=== PATIENT | female | born 1970 | race Caucasian/White ===

== ENCOUNTER 2018-07-17 18:19 | Inpatient (IN) | payer OTHER ==
[2018-07-17] MEDS ORDERED: Sodium Chloride 0.9% 1000 ML 1,000 ML IV SCH (19:00)
[2018-07-17] MEDS ORDERED: Catapres 0.1 MG PO ONE (19:01)
[2018-07-17 19:19] LABS: BASOPHIL % 0.3 % (0.0-0.4); Basophil (Absolute #) 0.03 (0-0.4); Eosinophil % 0.7 % (0.00-5.0); Eosinophil (Absolute #) 0.07 (0-0.5); Granulocyte Absolute (ANC) 7.25 (1.4-6.9); Granulocytes % 77.6 % (36.0-66.0); Hematocrit 47.7 % (35-47); Hemoglobin 15.1 gm/dl (12.0-16.0); Lymphocyte (Absolute #) 1.35 (1.0-4.6); Lymphocytes % 14.4 % (24.0-44.0); Mean Cell Volume 94.8 fl (78-100); Mean Corpuscular Hgb Concent. 31.7 g/dl (32-36); Monocyte (Absolute #) 0.65 (0.0-1.3); Platelet Count 365 K/mm3 (150-450); Red Blood Count 5.03 M/mm3 (4.1-5.4); White Blood Count 9.4 K/mm3 (4.0-10.5)
[2018-07-17] MEDS ORDERED: Catapres 0.1 MG ONE (19:22)
[2018-07-17 19:28] LABS: ANION GAP 12.7 MEQ/L (5-15); BLOOD UREA NITROGEN 15 mg/dL (7-17); CHLORIDE 97 mmol/L (98-107); Calcium 9.6 mg/dL (8.4-10.2); Carbon Dioxide 32 mmol/L (22-30); Glucose 215 mg/dL (74-106); Potassium 4.3 mmol/L (3.5-5.1); SODIUM 138 mmol/L (137-145)
[2018-07-17] MEDS ORDERED: TRANDATE 20 MG/5 ML SYRINGE IV ONE ×2 (20:44→20:56)
[2018-07-17 21:46] LABS: A-aADO2 38; ABG HEMOGLOBIN 14.6; ABG POTASSIUM 3.9 (3.5-5.1); ARTERIAL BLD GAS O2 SATURATION 87.3 % (95-100); ARTERIAL BLOOD GAS BASE EXCESS 7.7 (-2.0-2.0); ARTERIAL BLOOD GAS FIO2 21 %; ARTERIAL BLOOD GAS PCO2 49 mmHg (35-45); ARTERIAL BLOOD GAS pH 7.44 (7.35-7.45); CARBOXYHEMOGLOBIN 2.7 % THgb (0.0-6.9); HCO3- 33.3 (22-28); HGB O2 SAT 83.7 g/dF (94-100); Methhemoglobin 1.4 % (1.4-1.5); paO2 pAO1 0.57
[2018-07-17 21:47] LABS: ABG SITE RIGHT BRACHIAL; ALLEN TEST OK? YES; ARTERIAL BLOOD GAS PO2 50 mmHg (75-100)
[2018-07-17] MEDS ORDERED: DUONEB 0.5-3 MG/3 ml Neb IH ONE ×2 (21:52→21:53)
--- NOTE | 2018-07-17 21:57 | XRAY ---
Indication: Headache. High blood pressure. Multiple contiguous axial images obtained through the head without contrast. Comparison: None Normal appearing brain parenchyma, ventricles, and bony calvarium. Visualized paranasal sinuses and mastoid air cells are clear. Impression: Normal CT head without contrast exam. Comment: Preliminary interpretation was made by [facility]. No discrepancy. CTDI 69.25
[2018-07-17 21:59] LABS: INR 1.1 (0.8-3.0)
[2018-07-17 22:17] LABS: NT PRO BNP 759 pg/mL (0-900)
--- NOTE | 2018-07-17 22:24 | ERPHSYRPT ---
- History of Present Illness Time Seen by Provider: 07/17/18 20:10 Source: patient Patient Subjective Stated Complaint: has a sinus headachex 2 days and she is seeing glitter when she watches TV. Concerned that she has high B/P. has not been diagnosed. Triage Nursing Assessment: alert and oriented in no distress. has had a sinus headache x 2 days. states she is seeing glitter when she watches TV. she is concerned her B/P is elevated. has not been diagnosed with it. denies CP or SOB. denies cough Physician History: PATIENT PRESENTS TO EMERGENCY FOR ELEVATED BLOOD PRESSURE, ASSOCIATED WITH SINUS PRESSURE AND FLOATERS IN HER VISION. DENIES SLURRED SPEECH, BLURRED VISION, FOCAL NUMBNESS, TINGLING OR WEAKNESS IN EXTREMITIES. HAS NOT SEEN A PRIMARY CARE PROVIDER IN 30YEARS, EXPOSURE TO 2ND HAND SMOKE FOR 40 YEARS. DENIES CHEST PAIN, EXERTIONAL DYSPNEA, COUGH OR FEVER. Timing/Duration: day(s) Severity: moderate Associated Symptoms: headaches Allergies/Adverse Reactions: ibuprofen [From Motrin] Allergy (Verified 07/17/18 23:21) Swelling filgrastim [From Neupogen] Adverse Reaction (Verified 07/17/18 19:08) Immunizations Up to Date: (unknown) - Review of Systems Constitutional: No Fever, No Chills Eyes: No Symptoms Ears, Nose, & Throat: No Symptoms Respiratory: No Symptoms, No Cough, No Dyspnea Cardiac: No Symptoms, No Chest Pain, No Edema, No Syncope Abdominal/Gastrointestinal: No Abdominal Pain, No Nausea, No Vomiting, No Diarrhea Genitourinary Symptoms: No Symptoms, No Dysuria Musculoskeletal: No Symptoms, No Back Pain, No Neck Pain Skin: No Rash Neurological: Headache, No Dizziness, No Focal Weakness, No Sensory Changes Psychological: No Symptoms Endocrine: No Symptoms All Other Systems: Reviewed and Negative - Past Medical History Pertinent Past Medical History: No - Past Surgical History Past Surgical History: No - Social History Smoking Status: Never smoker Exposure to second hand smoke: No Drug Use: none Patient Lives Alone: No - Nursing Vital Signs Nursing Vital Signs: Initial Vital Signs Temperature 97.8 F 07/17/18 18:49 Pulse Rate 91 H 07/17/18 18:49 Respiratory Rate 18 07/17/18 18:49 Blood Pressure 192/99 07/17/18 18:49 O2 Sat by Pulse Oximetry 92 L 07/17/18 18:49 Pain Scale Pain Intensity 2 - Physical Exam General Appearance: no apparent distress, alert Eye Exam: PERRL/EOMI, eyes nml inspection Ears, Nose, Throat Exam: normal ENT inspection, TMs normal, pharynx normal, moist mucous membranes, other (NO PERCUSSION TENDERNESS OVER SINUSES) Neck Exam: normal inspection, non-tender, supple, full range of motion Respiratory Exam: diminished breath sounds, No respiratory distress Cardiovascular Exam: regular rate/rhythm, normal heart sounds, normal peripheral pulses Gastrointestinal/Abdomen Exam: soft, normal bowel sounds, No tenderness, No mass Back Exam: normal inspection, normal range of motion, No CVA tenderness, No vertebral tenderness Extremity Exam: normal inspection, normal range of motion, pelvis stable, pedal edema (1+ EDEMA) Neurologic Exam: alert, oriented x 3, cooperative, normal mood/affect, nml cerebellar function, nml station & gait, sensation nml, No motor deficits Skin Exam: normal color, warm, dry, No rash Lymphatic Exam: No adenopathy SpO2 Interpretation: normal SpO2: 95 Oxygen Delivery: Nasal Cannula - Course EKG Interpreted by Me: RATE, Sinus Rhythm, Sinus Tach, NORMAL AXIS - CT Exams Head CT Interpretation: Tele-radiologist Report, No/Intracranial Hemorrhag Chest CT Interpretation: Tele-radiologist Report (NO CTA EVIDENCE OF PULMONARY EMBOLISM, HAZY NONSPECIFIC AIRSPACE OPACITIES THROUGHOUT BOTH LUNGS,, UNCLEAR WHETHER THIS REPRESENTS DIFFUSE ATELECTATIC CHANGE VS INFECTIOUS/INFLAMMATORY PROCESS SUCH ATYPICAL PNEUMONIA) Ordered Tests: Active Orders 24 hr Category Date Time Status Up With Assistance ROUTINE Activity 07/18/18 00:48 Ordered Code Status Order ROUTINE Care 07/18/18 00:48 Ordered EKG-ER Only STAT Care 07/17/18 18:59 Active IV Care Q6H Care 07/18/18 00:48 Ordered Intake and Output Q12H Care 07/18/18 00:[address] in Observation ROUTINE Care 07/18/18 00:48 Ordered Elio Hose, Apply ROUTINE Care 07/18/18 00:48 Ordered Vital Signs Q4H Care 07/18/18 00:48 Ordered Weight,Daily 0600 Care 07/18/18 00:48 Ordered Cardiac Diet Diet 07/18/18 Breakfast Ordered CHEST WITH CONTRAST [CT] Stat Exams 07/17/18 21:51 Taken HEAD WITHOUT CONTRAST [CT] Stat Exams 07/17/18 19:01 Completed ARTERIAL BLOOD GASES Stat Lab 07/17/18 21:40 Completed BLOOD CULTURE Stat Lab 07/18/18 00:32 Received BMP Stat Lab 07/17/18 19:15 Completed CBC W DIFF Stat Lab 07/17/18 19:15 Completed NT PRO BNP Routine Lab 07/17/18 19:15 Completed PROTIME WITH INR Stat Lab 07/17/18 19:15 Completed TROPONIN Q3H Lab 07/17/18 19:15 Completed TROPONIN Q3H Lab 07/18/18 00:32 Received TROPONIN Q3H Lab 07/18/18 04:00 Ordered TROPONIN Q3H Lab 07/18/18 07:00 Ordered TROPONIN Q3H Lab 07/18/18 10:00 Ordered Oxygen NASAL CANNULA 2 lpm RT 07/18/18 00:48 Ordered Peak Expiratory Flow Rate ONCE RT 07/17/18 21:59 Active Pulse Oximetry CONTINUOUS RT 07/18/18 00:50 Ordered Respiratory Nebulizer Q4H RT 07/18/18 00:48 Ordered Respiratory Therapy Assessment DAILY RT 07/17/18 21:54 Active Respiratory Therapy Consult ROUTINE RT 07/18/18 00:48 Ordered Transfer Order Routine Transfer 07/18/18 Ordered Medication Summary Generic Name Dose Route Start Last Admin Trade Name Freq PRN Reason Stop Dose Admin Ceftriaxone Sodium mg 07/18/18 00:15 Rocephin 1000 Mg Inj IM 07/18/18 00:16 STAT STA Sodium Chloride 1,000 mls @ 50 mls/hr 07/17/18 19:00 07/17/18 19:34 Sodium Chloride 0.9% 1000 Ml IV 08/16/18 18:59 50 mls/hr .Q20H KENYETTA Administration Discontinued Medications Generic Name Dose Route Start Last Admin Trade Name Freq PRN Reason Stop Dose Admin Albuterol/Ipratropium 3 ml 07/17/18 21:53 07/17/18 21:54 Duoneb 0.5-3 Mg/3 Ml Neb IH 07/17/18 21:54 3 ml STAT ONE Administration Albuterol/Ipratropium Confirm 07/17/18 21:52 Duoneb 0.5-3 Mg/3 Ml Neb Administered 07/17/18 21:53 Dose 3 ml IH .STK-MED ONE Clonidine 0.2 mg 07/17/18 19:01 07/17/18 19:34 Catapres 0.1 Mg PO 07/17/18 19:02 0.2 mg STAT ONE Administration Clonidine Confirm 07/17/18 19:22 Catapres 0.1 Mg Administered 07/17/18 19:23 Dose 0.2 mg .ROUTE .STK-MED ONE Lisinopril 20 mg/ 0 mg 07/18/18 10:00 Hydrochlorothiazide 25 mg PO 08/17/18 09:59 DAILY KENYETTA Lisinopril 20 mg/ 0 mg 07/18/18 00:47 Hydrochlorothiazide 25 mg PO 07/18/18 00:48 STAT ONE Labetalol HCl 20 mg 07/17/18 20:44 07/17/18 20:59 Trandate 20 Mg/5 Ml Syringe IV 07/17/18 20:45 20 mg STAT ONE Administration Labetalol HCl Confirm 07/17/18 20:56 Trandate 20 Mg/5 Ml Syringe Administered 07/17/18 20:57 Dose 20 mg IV .STK-MED ONE Lab/Rad Data: Laboratory Result Diagrams 07/17/18 19:15 07/17/18 19:15 Laboratory Results 07/17/18 07/17/18 07/17/18 Range/Units 21:40 19:15 19:15 WBC (4.0-10.5) K/mm3 RBC (4.1-5.4) M/mm3 Hgb (12.0-16.0) gm/dl Hct (35-47) % MCV (78-100) fl MCH (26-32) pg MCHC (32-36) g/dl RDW (11.5-14.0) % Plt Count (150-450) K/mm3 MPV (6-9.5) fl Gran % (36.0-66.0) % Eos # (Auto) (0-0.5) Absolute Lymphs (auto) (1.0-4.6) Absolute Monos (auto) (0.0-1.3) Lymphocytes % (24.0-44.0) % Monocytes % (0.0-12.0) % Eosinophils % (0.00-5.0) % Basophils % (0.0-0.4) % Absolute Granulocytes (1.4-6.9) Basophils # (0-0.4) PT 12.8 H (9.95-12.35) SECONDS INR 1.10 (0.8-3.0) Puncture Site RIGHT BRACHIAL pCO2 49 H (35-45) mmHg pO2 50 L* (75-100) mmHg Base Excess 7.7 H (-2.0-2.0) O2 Saturation 83.7 L (94-100) g/dF ABG pH 7.44 (7.35-7.45) ABG HCO3 33.3 H* (22-28) ABG O2 Sat (Measured) 87.3 L (95-100) % Mickey Test YES A-a Gradient 38 a/A Ratio 0.57 Hemoglobin 14.6 Carboxyhemoglobin 2.7 (0.0-6.9) % THgb Methemoglobin 1.4 (1.4-1.5) % Temperature 37.0 C POC O2 Flow Rate 21 % Sodium (137-145) mmol/L Potassium 3.9 (3.5-5.1) mmol/L Chloride (98-107) mmol/L Carbon Dioxide (22-30) mmol/L Anion Gap (5-15) MEQ/L BUN (7-17) mg/dL Creatinine (0.52-1.04) mg/dL Estimated GFR ML/MIN Glucose (74-106) mg/dL Calcium (8.4-10.2) mg/dL Troponin I < 0.012 (0.000-0.034) ng/mL NT-Pro-B Natriuret Pep 759 (0-900) pg/mL 07/17/18 07/17/18 Range/Units 19:15 19:15 WBC 9.4 (4.0-10.5) K/mm3 RBC 5.03 (4.1-5.4) M/mm3 Hgb 15.1 (12.0-16.0) gm/dl Hct 47.7 H (35-47) % MCV 94.8 (78-100) fl MCH 30.0 (26-32) pg MCHC 31.7 L (32-36) g/dl RDW 13.0 (11.5-14.0) % Plt Count 365 (150-450) K/mm3 MPV 9.0 (6-9.5) fl Gran % 77.6 H (36.0-66.0) % Eos # (Auto) 0.07 (0-0.5) Absolute Lymphs (auto) 1.35 (1.0-4.6) Absolute Monos (auto) 0.65 (0.0-1.3) Lymphocytes % 14.4 L (24.0-44.0) % Monocytes % 7.0 (0.0-12.0) % Eosinophils % 0.7 (0.00-5.0) % Basophils % 0.3 (0.0-0.4) % Absolute Granulocytes 7.25 H (1.4-6.9) Basophils # 0.03 (0-0.4) PT (9.95-12.35) SECONDS INR (0.8-3.0) Puncture Site pCO2 (35-45) mmHg pO2 (75-100) mmHg Base Excess (-2.0-2.0) O2 Saturation (94-100) g/dF ABG pH (7.35-7.45) ABG HCO3 (22-28) ABG O2 Sat (Measured) (95-100) % Mickey Test A-a Gradient a/A Ratio Hemoglobin Carboxyhemoglobin (0.0-6.9) % THgb Methemoglobin (1.4-1.5) % Temperature C POC O2 Flow Rate % Sodium 138 (137-145) mmol/L Potassium 4.3 (3.5-5.1) mmol/L Chloride 97 L (98-107) mmol/L Carbon Dioxide 32 H (22-30) mmol/L Anion Gap 12.7 (5-15) MEQ/L BUN 15 (7-17) mg/dL Creatinine 0.80 (0.52-1.04) mg/dL Estimated GFR > 60.0 ML/MIN Glucose 215 H (74-106) mg/dL Calcium 9.6 (8.4-10.2) mg/dL Troponin I (0.000-0.034) ng/mL NT-Pro-B Natriuret Pep (0-900) pg/mL - Progress Progress Note: 07/17/18 23:53, CATAPRES 0.2MG ORALLY, LABETOLOL 20MG IV IV NORMAL SALINE 100ML/HR, DUONEB AEROSOL TX, AFTER 2 SETS OF BLOOD CULTURES ADMINISTERED ROCEPHIN 1GM, ZITHROMAX 500MG IVPB, ALL LAB TEST REVIEWED AND ARE NORMAL EXCEPT ARTERIAL BLOOD GAS PH-7.44/PCO2-49/PO2-50/HCO3-33.3/SAO2-83% 07/17/18 23:[address] Adams (DISCUSSED WITH DR ADAMS AT 0030 FOR OBSERVATION) - Departure Time of Disposition: 01:00 Departure Disposition: Observation Clinical Impression: ATYPICAL PNEUMONIA, HYPERTENSION Condition: Stable Critical Care Time: No Referrals: FRANCISCA MCDOWELL [Primary Care Provider] -
[2018-07-17 22:36] LABS: TROPONIN < 0.012 ng/mL (0.000-0.034)
[2018-07-18] MEDS ORDERED: Rocephin 1000 MG INJ IM STA (00:15)
[2018-07-18] MEDS ORDERED: Zestril 20 MG*** 20 MG, hydroDIURIL 25 MG*** 25 MG PO ONE ×2 (00:47)
[2018-07-18] MEDS ORDERED: TYLENOL 325 MG PO PRN (00:50)
[2018-07-18] MEDS ORDERED: Xopenex 1.25 MG/0.5 ML UD NEBULE IH PRN (00:51)
[2018-07-18] MEDS ORDERED: Sodium Chloride 0.9% 1000 ML 1,000 ML IV SCH (01:00)
[2018-07-18] MEDS ORDERED: DUONEB 0.5-3 MG/3 ml Neb IH SCH (03:00)
[2018-07-18] MEDS ORDERED: DUONEB 0.5-3 MG/3 ml Neb IH PRN (03:35)
[2018-07-18] MEDS: solu-MEDROL 125 MG IV SCH ×2 (05:58→12:34)
[2018-07-18] MEDS: Zestril 20 MG*** 20 MG, hydroDIURIL 25 MG*** 25 MG PO SCH ×2 (09:11)
[2018-07-18] MEDS: ENOXAPARIN SODIUM SQ SCH (09:11)
[2018-07-18] MEDS: Zithromax 500 MG/ 250 ML NaCl Premix 500 MG/250 ML IVPB IV SCH (09:12)
--- NOTE | 2018-07-18 09:32 | XRAY ---
Indication: Dyspnea. Low oxygen levels. Multiple contiguous axial images obtained through the chest using 80 cc Isovue 370 contrast and PE protocol. Comparison: None There is adequate opacification of the pulmonary arteries to include the lobar and segmental branches. However respiration artifact limits evaluation of the more distal lobar and segmental branches. No filling defect or pulmonary embolus. Main pulmonary arteries are enlarged, right measuring 3.1 cm and left measuring 3 cm as seen in pulmonary hypertension. Heart is enlarged. No pericardial effusion. Aorta is normal in course and caliber. No pathologic mediastinal/hilar lymphadenopathy. Examination of the lung parenchyma demonstrates diffuse patchy hazy alveolar opacities bilaterally concerning for pneumonitis. No consolidation or effusion. Also scattered bilateral subsegmental atelectasis/scarring. Bony thorax intact with mild degenerative changes throughout the spine. Limited upper abdomen demonstrates mild fatty liver. Impression: 1. Pulmonary embolus evaluation limited due to respiration artifact. No gross pulmonary embolus. 2. Prominent main pulmonary arteries concerning for pulmonary hypertension. 3. Diffuse bilateral patchy hazy alveolar opacities, possible pneumonitis. 4. Cardiomegaly and fatty liver. Comment: Preliminary interpretation was made by C. No discrepancy. CTDI 28.13
[2018-07-18] MEDS ORDERED: ROCEPHIN 1 Gm-D5w 50 ml Bag** 1 G/50 ML IVPB IV SCH (10:00)
[2018-07-18] MEDS ORDERED: FLUZONE QUAD (36mo-64yo) 2018-2019 SYRINGE IM ONE (10:00)
[2018-07-18] MEDS ORDERED: Zestril 20 MG*** 20 MG, hydroDIURIL 25 MG*** 25 MG PO SCH ×2 (10:00)
[2018-07-18] MEDS: NORVASC 5 MG PO SCH (14:03)
--- NOTE | 2018-07-18 14:59 | PCM.HP ---
History of Present Illness - Chief Complaint Chief Complaint: Atypical pneumonia, hypertension History of Present Illness: is a 48 year old female pt with no local MD, apparently no doctor visit in the past 30 years, who came to ER with visual changes and headache. She was found to be hypertensive, up to 204/113. Apparently she had been checking her BP at home and it had been > 100 diastolic. In the ER she received clonidine and was started on lisinopril 10mg daily. Her BP remains elevated so I have added norvasc 5mg po daily as well. Pt also c/o some OLIVIER in the past two days, as well as L ear pain (which has resolved). Has had some cough although it does not sound significant. Has been wheezing recently. In the ER, CT head was wnl. CT chest showed negative for gross PE (but limited eval). ?pulmonary HTN. Bilateral patchy hazy alveolar opacities. Cardiomegaly and fatty liver. Troponins were negative x 5. EKG non acute. BNP 759., CBC and BMP grossly nl, aside from blood glucose of 215. A1c is pending. Pt was started on zithromax and rocephin, as well as solumedrol 80mg IV q6h. Pt has an appointment scheduled with Dr. Andujar. - Review of Systems Eyes: Vision Changes ("floaters" - states, "now I'm seeing clowns, but Dr. Carrion (ophtholamology) said he'd work on that.") Ears, Nose, & Throat: Ear Pain Respiratory: Cough, Short Of Breath Cardiac: Edema (LE, chronic) Psychological: No Anxiety, No Depression, No Suicidal Ideations Immunological/Allergic: Pollen Allergy All Other Systems: Reviewed and Negative Medications & Allergies Home Medications: Home Medication List No Reportable Medications [No Reported Medications] 07/18/18 [History Confirmed 07/18/18] Allergies/Adverse Reactions: Allergies Allergy/AdvReac Type Severity Reaction Status Date / Time aspirin Allergy Severe Swelling Verified 07/18/18 02:39 ibuprofen [From Motrin] Allergy Severe Swelling Verified 07/18/18 02:39 - Past Medical History Past Medical History: No Neurological History: No Pertinent History ENT History: No Pertinent History Cardiac History: No Pertinent History Respiratory History: No Pertinent History Endocrine Medical History: No Pertinent History Musculoskelatal History: No Pertinent History GI Medical History: No Pertinent History History: No Pertinent History Pyscho-Social History: No Pertinent History Reproductive Disorders: No Pertinent History Comment: patient was 2 yrs old had "mylitis" per mother and was paralized from the waist down, learned to re-walk at [facility] - Female History Are you now?: No - Past Surgical History Past Surgical History: No - Social History Smoking Status: Never smoker Exposure to second hand smoke: No Alcohol: None Drug Use: none - Physical Exam Vital Signs: Vital Signs - 24 hr Temp Pulse Resp BP Pulse Ox 07/18/18 12:00 98.2 F 78 18 169/88 98 07/18/18 08:00 18 07/18/18 07:21 98.6 F 71 18 175/91 94 L 07/18/18 04:00 97.7 F 77 20 145/65 07/18/18 03:38 78 24 95 07/18/18 03:19 145/65 07/18/18 02:15 97.7 F 77 20 194/94 95 07/18/18 00:52 95 07/17/18 23:17 74 160/84 95 07/17/18 22:02 75 24 95 07/17/18 21:51 78 20 142/62 92 L 07/17/18 21:08 80 18 181/101 96 07/17/18 20:59 94 H 18 184/107 98 07/17/18 19:56 89 204/113 97 07/17/18 19:21 93 H 183/94 93 L 07/17/18 18:49 97.8 F 91 H 18 192/99 92 L Oxygen-Last 24 hours O2 Percentage 2 Liters = 28% O2 Percentage 2 Liters = 28% O2 Percentage 2 Liters = 28% O2 Percentage 2 Liters = 28% O2 Percentage 2 Liters = 28% O2 Percentage 2 Liters = 28% General Appearance: no apparent distress, obese Neurologic Exam: alert, oriented x 3, cooperative Eye Exam: eyes nml inspection Ears, Nose, Throat Exam: moist mucous membranes, other (no mastoid tenderness bilat) Neck Exam: normal inspection, non-tender, No lymphadenopathy Respiratory Exam: normal breath sounds, lungs clear, No crackles/rales, No rhonchi, No wheezing Cardiovascular Exam: regular rate/rhythm, normal heart sounds, No murmur Gastrointestinal/Abdomen Exam: soft, normal bowel sounds, No tenderness, No mass , No guarding, No rebound Back Exam: normal inspection, No rash Extremity Exam: normal inspection, No pedal edema, No swelling Results - Labs Lab/Micro Results: Lab Results-Last 24 Hours 07/17/18 07/17/18 07/17/18 Range/Units 19:15 19:15 19:15 WBC 9.4 (4.0-10.5) K/mm3 RBC 5.03 (4.1-5.4) M/mm3 Hgb 15.1 (12.0-16.0) gm/dl Hct 47.7 H (35-47) % MCV 94.8 (78-100) fl MCH 30.0 (26-32) pg MCHC 31.7 L (32-36) g/dl RDW 13.0 (11.5-14.0) % Plt Count 365 (150-450) K/mm3 MPV 9.0 (6-9.5) fl Gran % 77.6 H (36.0-66.0) % Eos # (Auto) 0.07 (0-0.5) Absolute Lymphs (auto) 1.35 (1.0-4.6) Absolute Monos (auto) 0.65 (0.0-1.3) Lymphocytes % 14.4 L (24.0-44.0) % Monocytes % 7.0 (0.0-12.0) % Eosinophils % 0.7 (0.00-5.0) % Basophils % 0.3 (0.0-0.4) % Absolute Granulocytes 7.25 H (1.4-6.9) Basophils # 0.03 (0-0.4) PT 12.8 H (9.95-12.35) SECONDS INR 1.10 (0.8-3.0) Puncture Site pCO2 (35-45) mmHg pO2 (75-100) mmHg Base Excess (-2.0-2.0) O2 Saturation (94-100) g/dF ABG pH (7.35-7.45) ABG HCO3 (22-28) ABG O2 Sat (Measured) (95-100) % Mickey Test A-a Gradient a/A Ratio Hemoglobin Carboxyhemoglobin (0.0-6.9) % THgb Methemoglobin (1.4-1.5) % Temperature C POC O2 Flow Rate % Sodium 138 (137-145) mmol/L Potassium 4.3 (3.5-5.1) mmol/L Chloride 97 L (98-107) mmol/L Carbon Dioxide 32 H (22-30) mmol/L Anion Gap 12.7 (5-15) MEQ/L BUN 15 (7-17) mg/dL Creatinine 0.80 (0.52-1.04) mg/dL Estimated GFR > 60.0 ML/MIN Glucose 215 H (74-106) mg/dL Hemoglobin A1c (4.5-6.0) % Calcium 9.6 (8.4-10.2) mg/dL Troponin I (0.000-0.034) ng/mL NT-Pro-B Natriuret Pep (0-900) pg/mL 07/17/18 07/17/18 07/18/18 Range/Units 19:15 21:40 00:32 WBC (4.0-10.5) K/mm3 RBC (4.1-5.4) M/mm3 Hgb (12.0-16.0) gm/dl Hct (35-47) % MCV (78-100) fl MCH (26-32) pg MCHC (32-36) g/dl RDW (11.5-14.0) % Plt Count (150-450) K/mm3 MPV (6-9.5) fl Gran % (36.0-66.0) % Eos # (Auto) (0-0.5) Absolute Lymphs (auto) (1.0-4.6) Absolute Monos (auto) (0.0-1.3) Lymphocytes % (24.0-44.0) % Monocytes % (0.0-12.0) % Eosinophils % (0.00-5.0) % Basophils % (0.0-0.4) % Absolute Granulocytes (1.4-6.9) Basophils # (0-0.4) PT (9.95-12.35) SECONDS INR (0.8-3.0) Puncture Site RIGHT BRACHIAL pCO2 49 H (35-45) mmHg pO2 50 L* (75-100) mmHg Base Excess 7.7 H (-2.0-2.0) O2 Saturation 83.7 L (94-100) g/dF ABG pH 7.44 (7.35-7.45) ABG HCO3 33.3 H* (22-28) ABG O2 Sat (Measured) 87.3 L (95-100) % Mickey Test YES A-a Gradient 38 a/A Ratio 0.57 Hemoglobin 14.6 Carboxyhemoglobin 2.7 (0.0-6.9) % THgb Methemoglobin 1.4 (1.4-1.5) % Temperature 37.0 C POC O2 Flow Rate 21 % Sodium (137-145) mmol/L Potassium 3.9 (3.5-5.1) mmol/L Chloride (98-107) mmol/L Carbon Dioxide (22-30) mmol/L Anion Gap (5-15) MEQ/L BUN (7-17) mg/dL Creatinine (0.52-1.04) mg/dL Estimated GFR ML/MIN Glucose (74-106) mg/dL Hemoglobin A1c (4.5-6.0) % Calcium (8.4-10.2) mg/dL Troponin I < 0.012 < 0.012 (0.000-0.034) ng/mL NT-Pro-B Natriuret Pep 759 (0-900) pg/mL 07/18/18 07/18/18 07/18/18 Range/Units 03:00 04:14 06:52 WBC (4.0-10.5) K/mm3 RBC (4.1-5.4) M/mm3 Hgb (12.0-16.0) gm/dl Hct (35-47) % MCV (78-100) fl MCH (26-32) pg MCHC (32-36) g/dl RDW (11.5-14.0) % Plt Count (150-450) K/mm3 MPV (6-9.5) fl Gran % (36.0-66.0) % Eos # (Auto) (0-0.5) Absolute Lymphs (auto) (1.0-4.6) Absolute Monos (auto) (0.0-1.3) Lymphocytes % (24.0-44.0) % Monocytes % (0.0-12.0) % Eosinophils % (0.00-5.0) % Basophils % (0.0-0.4) % Absolute Granulocytes (1.4-6.9) Basophils # (0-0.4) PT (9.95-12.35) SECONDS INR (0.8-3.0) Puncture Site pCO2 (35-45) mmHg pO2 (75-100) mmHg Base Excess (-2.0-2.0) O2 Saturation (94-100) g/dF ABG pH (7.35-7.45) ABG HCO3 (22-28) ABG O2 Sat (Measured) (95-100) % Mickey Test A-a Gradient a/A Ratio Hemoglobin Carboxyhemoglobin (0.0-6.9) % THgb Methemoglobin (1.4-1.5) % Temperature C POC O2 Flow Rate % Sodium (137-145) mmol/L Potassium (3.5-5.1) mmol/L Chloride (98-107) mmol/L Carbon Dioxide (22-30) mmol/L Anion Gap (5-15) MEQ/L BUN (7-17) mg/dL Creatinine (0.52-1.04) mg/dL Estimated GFR ML/MIN Glucose (74-106) mg/dL Hemoglobin A1c 9.47 H (4.5-6.0) % Calcium (8.4-10.2) mg/dL Troponin I < 0.012 < 0.012 (0.000-0.034) ng/mL NT-Pro-B Natriuret Pep (0-900) pg/mL 07/18/18 Range/Units 09:50 WBC (4.0-10.5) K/mm3 RBC (4.1-5.4) M/mm3 Hgb (12.0-16.0) gm/dl Hct (35-47) % MCV (78-100) fl MCH (26-32) pg MCHC (32-36) g/dl RDW (11.5-14.0) % Plt Count (150-450) K/mm3 MPV (6-9.5) fl Gran % (36.0-66.0) % Eos # (Auto) (0-0.5) Absolute Lymphs (auto) (1.0-4.6) Absolute Monos (auto) (0.0-1.3) Lymphocytes % (24.0-44.0) % Monocytes % (0.0-12.0) % Eosinophils % (0.00-5.0) % Basophils % (0.0-0.4) % Absolute Granulocytes (1.4-6.9) Basophils # (0-0.4) PT (9.95-12.35) SECONDS INR (0.8-3.0) Puncture Site pCO2 (35-45) mmHg pO2 (75-100) mmHg Base Excess (-2.0-2.0) O2 Saturation (94-100) g/dF ABG pH (7.35-7.45) ABG HCO3 (22-28) ABG O2 Sat (Measured) (95-100) % Mickey Test A-a Gradient a/A Ratio Hemoglobin Carboxyhemoglobin (0.0-6.9) % THgb Methemoglobin (1.4-1.5) % Temperature C POC O2 Flow Rate % Sodium (137-145) mmol/L Potassium (3.5-5.1) mmol/L Chloride (98-107) mmol/L Carbon Dioxide (22-30) mmol/L Anion Gap (5-15) MEQ/L BUN (7-17) mg/dL Creatinine (0.52-1.04) mg/dL Estimated GFR ML/MIN Glucose (74-106) mg/dL Hemoglobin A1c (4.5-6.0) % Calcium (8.4-10.2) mg/dL Troponin I < 0.012 (0.000-0.034) ng/mL NT-Pro-B Natriuret Pep (0-900) pg/mL - Radiology Impressions Radiology Exams & Impressions: Radiology Procedures Category Date Time Status CHEST WITH CONTRAST [CT] Stat Exams 07/17/18 21:51 Completed HEAD WITHOUT CONTRAST [CT] Stat Exams 07/17/18 19:01 Completed - Other Procedures and Tests Respiratory Therapy 07/17/18 21:54 Respiratory Therapy Assessment DAILY 07/17/18 21:59 Peak Expiratory Flow Rate ONCE 07/18/18 00:48 Oxygen NASAL CANNULA 2 lpm 07/18/18 03:34 Incentive Spirometry TID Assessment/Plan (1) SOB (shortness of breath) Current Visit: Yes Status: Acute Assessment & Plan: Could be cardiac related or pulmonary. on IV antibiotics and steroid (changing from IV to po today) for possible pneumonitis. Echo tomorrow for question of pulmonary HTN. Code(s): R06.02 - SHORTNESS OF BREATH (2) Hypertension Current Visit: Yes Status: Acute Qualifiers: Hypertension type: essential hypertension Qualified Code(s): I10 - Essential (primary) hypertension Assessment & Plan: On 10mg lisinopril, but I explained the norvasc would work more quickly so started 5mg of that today. EKG was non acute, NSR, low amplitude, R axis deviation, poor R wave progression. Code(s): I10 - ESSENTIAL (PRIMARY) HYPERTENSION (3) Headache Current Visit: Yes Status: Acute Qualifiers: Headache chronicity pattern: acute headache Intractability: not intractable Assessment & Plan: No current c/o OLIVIER. CT head was neg. Code(s): R51 - HEADACHE (4) Morbid obesity Current Visit: Yes Status: Chronic Code(s): E66.01 - MORBID (SEVERE) OBESITY DUE TO EXCESS CALORIES (5) Hyperglycemia Current Visit: Yes Status: Acute Assessment & Plan: a1c pending. mother is diabetic. Code(s): R73.9 - HYPERGLYCEMIA, UNSPECIFIED (6) Fatty liver Current Visit: Yes Status: Chronic Assessment & Plan: I did discuss briefly with pt that weight loss could improve the fatty liver. Code(s): K76.0 - FATTY (CHANGE OF) LIVER, NOT ELSEWHERE CLASSIFIED (7) Hypertensive emergency Current Visit: Yes Status: Resolved Code(s): I16.1 - HYPERTENSIVE EMERGENCY
[2018-07-18] MEDS: ROCEPHIN 1 Gm-D5w 50 ml Bag** 1 G/50 ML IVPB IV SCH (21:44)
[2018-07-19 06:05] LABS: BASOPHIL % 0.2 % (0.0-0.4); Basophil (Absolute #) 0.02 (0-0.4); Eosinophil (Absolute #) 0 (0-0.5); Granulocyte Absolute (ANC) 9.87 (1.4-6.9); Granulocytes % 78.4 % (36.0-66.0); Hematocrit 43.7 % (35-47); Hemoglobin 13.8 gm/dl (12.0-16.0); Lymphocyte (Absolute #) 1.49 (1.0-4.6); Lymphocytes % 11.9 % (24.0-44.0); Mean Cell Volume 95.6 fl (78-100); Mean Corpuscular Hemoglobin 30.2 pg (26-32); Mean Corpuscular Hgb Concent. 31.6 g/dl (32-36); Mean Platelet Volume 9.4 fl (6-9.5); Monocyte (Absolute #) 1.19 (0.0-1.3); Monocytes % 9.5 % (0.0-12.0); Platelet Count 399 K/mm3 (150-450); Red Blood Count 4.57 M/mm3 (4.1-5.4); Red Cell Distribution Width 12.8 % (11.5-14.0); White Blood Count 12.6 K/mm3 (4.0-10.5)
[2018-07-19 06:16] LABS: ANION GAP 11.5 MEQ/L (5-15); BLOOD UREA NITROGEN 25 mg/dL (7-17); CHLORIDE 96 mmol/L (98-107); Calcium 8.7 mg/dL (8.4-10.2); Carbon Dioxide 34 mmol/L (22-30); Creatinine 1 0.83 mg/dL (0.52-1.04); Glucose 283 mg/dL (74-106); Potassium 4.4 mmol/L (3.5-5.1); SODIUM 136 mmol/L (137-145)
--- NOTE | 2018-07-19 08:54 | PCM.NOTE ---
Date and Time: 07/19/18 0832 Subjective Assessment: Patient reports still seeing some floaters and describes them as clowns once. Her mom who is at the bedside states she woke up confused this AM around 5 am and did not know where she was but this did resolve. They state her nurse knew about this. The patient reports her oxygen saturation continues to drop. When she came into the hospital, her pO2 was low. She reports her shortness of breath may be a little better. She continues to have some cough. She reports she feels constipated. She reports her eye doctor is Dr. Carrion and she sees him about once a year. She reports she has never smoked or used alcohol. Her mother states diabetes runs in their family. 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, normal mood/ affect, nml cerebellar function, sensation nml, No motor deficits, No sensory deficit, No disoriented, No confusion, No agitation, No depressed mood/affect, No motor weakness, No facial droop, No slurred speech, No aphasia, No dysarthria , No abnormal cerebellar tests, No abnormal scenic designer II-XII Skin Exam: normal color, warm, dry, No rash Respiratory Exam: other (wheeze in left lower lung field), No respiratory distress, No diminished breath sounds, No accessory muscle use, No crackles/ rales, No rhonchi, No stridor Cardiovascular Exam: regular rate/rhythm, normal heart sounds, No murmur, No friction rub, No gallop Gastrointestinal/Abdomen Exam: soft, normal bowel sounds, No tenderness, No distention, No mass Extremity Exam: other (no c/c/e, +2 dorsalis pedis pulses bilat) OBJECTIVE DATA Vital Signs: Vital Signs - 24 hr Temp Pulse Resp BP Pulse Ox 07/19/18 07:34 62 16 95 07/19/18 07:08 98.1 F 69 18 128/61 96 07/19/18 04:00 97.8 F 72 20 167/79 95 07/19/18 00:00 20 07/18/18 23:40 97.9 F 83 20 169/81 93 L 07/18/18 20:01 80 22 93 L 07/18/18 20:00 20 18 19:46 98.0 F 86 19 196/88 92 L 07/18/18 16:00 97.8 F 78 22 170/82 91 L 07/18/18 12:00 98.2 F 78 22 169/88 98 Oxygen-Last 24 hours O2 Percentage 2 Liters = 28% O2 Percentage 2 Liters = 28% O2 Percentage 2 Liters = 28% O2 Percentage 2 Liters = 28% O2 Percentage 2 Liters = 28% O2 Percentage 2 Liters = 28% Pain Assessment - Last Documented Pain Intensity 0 Pain Scale Used FLACC Intake and Output: Intake & Output 07/17/18 07/18/18 07/19/18 07/20/18 06:59 06:59 06:59 06:59 Intake Total 60 2668 Output Total 300 Balance 60 2368 Weight 133 kg 133 kg Lab Results: Lab Results-Last 24 Hours 07/18/18 07/18/18 07/19/18 Range/Units 03:00 09:50 05:26 WBC 12.6 H (4.0-10.5) K/mm3 RBC 4.57 (4.1-5.4) M/mm3 Hgb 13.8 (12.0-16.0) gm/dl Hct 43.7 (35-47) % MCV 95.6 (78-100) fl MCH 30.2 (26-32) pg MCHC 31.6 L (32-36) g/dl RDW 12.8 (11.5-14.0) % Plt Count 399 (150-450) K/mm3 MPV 9.4 (6-9.5) fl Gran % 78.4 H (36.0-66.0) % Eos # (Auto) 0 (0-0.5) Absolute Lymphs (auto) 1.49 (1.0-4.6) Absolute Monos (auto) 1.19 (0.0-1.3) Lymphocytes % 11.9 L (24.0-44.0) % Monocytes % 9.5 (0.0-12.0) % Eosinophils % 0.0 (0.00-5.0) % Basophils % 0.2 (0.0-0.4) % Absolute Granulocytes 9.87 H (1.4-6.9) Basophils # 0.02 (0-0.4) Sodium (137-145) mmol/L Potassium (3.5-5.1) mmol/L Chloride (98-107) mmol/L Carbon Dioxide (22-30) mmol/L Anion Gap (5-15) MEQ/L BUN (7-17) mg/dL Creatinine (0.52-1.04) mg/dL Estimated GFR ML/MIN Glucose (74-106) mg/dL Hemoglobin A1c 9.47 H (4.5-6.0) % Calcium (8.4-10.2) mg/dL Troponin I < 0.012 (0.000-0.034) ng/mL 07/19/18 Range/Units 05:26 WBC (4.0-10.5) K/mm3 RBC (4.1-5.4) M/mm3 Hgb (12.0-16.0) gm/dl Hct (35-47) % MCV (78-100) fl MCH (26-32) pg MCHC (32-36) g/dl RDW (11.5-14.0) % Plt Count (150-450) K/mm3 MPV (6-9.5) fl Gran % (36.0-66.0) % Eos # (Auto) (0-0.5) Absolute Lymphs (auto) (1.0-4.6) Absolute Monos (auto) (0.0-1.3) Lymphocytes % (24.0-44.0) % Monocytes % (0.0-12.0) % Eosinophils % (0.00-5.0) % Basophils % (0.0-0.4) % Absolute Granulocytes (1.4-6.9) Basophils # (0-0.4) Sodium 136 L (137-145) mmol/L Potassium 4.4 (3.5-5.1) mmol/L Chloride 96 L (98-107) mmol/L Carbon Dioxide 34 H (22-30) mmol/L Anion Gap 11.5 (5-15) MEQ/L BUN 25 H (7-17) mg/dL Creatinine 0.83 (0.52-1.04) mg/dL Estimated GFR > 60.0 ML/MIN Glucose 283 H (74-106) mg/dL Hemoglobin A1c (4.5-6.0) % Calcium 8.7 (8.4-10.2) mg/dL Troponin I (0.000-0.034) ng/mL Radiology Exams: Radiology Procedures Category Date Time Status CHEST WITH CONTRAST [CT] Stat Exams 07/17/18 21:51 Completed ECHO W/2D AND DOPPLER [US] Routine Exams 07/19/18 Ordered HEAD WITHOUT CONTRAST [CT] Stat Exams 07/17/18 19:01 Completed Assessment/Plan (1) Hypertension Current Visit: Yes Status: Acute Qualifiers: Hypertension type: essential hypertension Qualified Code(s): I10 - Essential (primary) hypertension Assessment & Plan: Her blood pressure is better controlled this AM. She is on lisinopril 20 mg and amlodipine 5 mg[address] Will ask for Dr[address] Saucedo to see her as there is concern for pulmonary hypertension and she has an Echo ordered. Code(s): I10 - ESSENTIAL (PRIMARY) HYPERTENSION (2) Hypoxia Current Visit: Yes Status: Acute Assessment & Plan: Will ask for home oxygen evaluation. Code(s): R09.02 - HYPOXEMIA (3) SOB (shortness of breath) Current Visit: Yes Status: Acute Assessment & Plan: She may need PFT's done as an outpatient to access for underlying asthma or COPD. She reports being a lifetime nonsmoker. Code(s): R06.02 - SHORTNESS OF BREATH (4) Headache Current Visit: Yes Status: Resolved Qualifiers: Headache chronicity pattern: acute headache Intractability: not intractable Assessment & Plan: Better now with blood pressure controlled. Head CT was negative in ER. Code(s): R51 - HEADACHE (5) New onset type 2 diabetes mellitus Current Visit: Yes Status: Acute Assessment & Plan: Her hgb A1C was 9.47 and her fasting blood glucose was elevated this AM. Her blood glucoses may be higher here in the hospital due to steroids, but her A1C is extremely elevated so she has diabetes. Will start metformin; ask for service center appraiser consult; she will need to be taught how to use a blood glucose meter. Start accu checks and low dose sliding scale of insulin and change to diabetic diet. Discussed limiting sugary drinks and sweets. Will check TSH and FLP. Code(s): E11.9 - TYPE 2 DIABETES MELLITUS WITHOUT COMPLICATIONS (6) Fatty liver Current Visit: Yes Status: Chronic Code(s): K76.0 - FATTY (CHANGE OF) LIVER , NOT ELSEWHERE CLASSIFIED (7) Morbid obesity Current Visit: Yes Status: Chronic Code(s): E66.01 - MORBID (SEVERE) OBESITY DUE TO EXCESS CALORIES (8) Constipation Current Visit: Yes Status: Acute Assessment & Plan: Will start senna bid prn. Code(s): K59.00 - CONSTIPATION, UNSPECIFIED (9) Cardiomegaly Current Visit: Yes Status: Acute Assessment & Plan: Seen on Chest CT; Echo ordered. Code(s): I51.7 - CARDIOMEGALY (10) Atypical pneumonia Current Visit: Yes Status: Acute Onset Date: ~07/18/18 Assessment & Plan: Patient on ceftriaxone and azithromycin and also steroids. I have weaned her steroids from 60 mg to 40 mg. Code(s): J18.9 - PNEUMONIA, UNSPECIFIED ORGANISM
[2018-07-19] MEDS ORDERED: DELTASONE 20 MG PO SCH (10:00)
[2018-07-19] MEDS: DELTASONE 20 MG PO SCH (10:01)
[2018-07-19] MEDS: ENOXAPARIN SODIUM SQ SCH (10:01)
[2018-07-19] MEDS: Zestril 20 MG*** 20 MG, hydroDIURIL 25 MG*** 25 MG PO SCH ×2 (10:02)
[2018-07-19] MEDS: Senokot-S Tablet PO SCH ×2 (10:02→21:59)
[2018-07-19] MEDS: NORVASC 5 MG PO SCH (10:03)
[2018-07-19] MEDS: Zithromax 500 MG/ 250 ML NaCl Premix 500 MG/250 ML IVPB IV SCH (10:04)
[2018-07-19] MEDS: NovoLOG Insulin SQ PRN ×3 (12:27→23:08)
--- NOTE | 2018-07-19 15:21 | CONS ---
CONSULT DATE: 07/19/2018 BRIEF HISTORY: This is a 48 year-old female who was seen because of pulmonary hypertension and also periods of desaturation. The patient stated that over the last three days she noted her blood pressure was creeping up. She eventually ended up in [facility]. On initial evaluation was noted to be hypoxic. CT of the chest did not show any evidence of embolism. Her troponin I is normal. She denies any chest pain. She has never had myocardial infarction or heart failure. She apparently had been relatively healthy for the last 46 years. CARDIAC RISK FACTORS: Recent diagnosis of diabetes. She has hypertension. She does not smoke. No known hyperlipidemia. FAMILY HISTORY: Positive for coronary artery disease. REVIEW OF SYSTEMS: GLOBAL COMPENSATION MANAGER: No history of stroke or seizures. RESPIRATORY: She is suspected to have some form of sleep apnea. GI: No reflux symptoms. No history of peptic ulcer or colon disorder. : Negative for dysuria or hematuria. PERIPHERAL VASCULAR: No history of DVT or claudication. \HEMATOLOGY: No blood dyscrasia or transfusion. PAST SURGICAL HISTORY: Unremarkable. CURRENT MEDICATIONS: Amlodipine, lisinopril, metformin, prednisone, Senokot, Zithromax, Rocephin. SOCIAL HISTORY: She used to work as a workers compensation legal secretary. She has no significant alcohol intake. PHYSICAL EXAMINATION: Blood pressure 175/84 with heart rate of 86, respirations about 18. GENERAL: The patient is a young female who is obese, who is alert, who is not in any form of distress. Currently chest pain free. HEENT: Unremarkable. NECK: No significant JVD. CHEST: The breath sounds are clear. CARDIAC: Heart tones are normal. There is audible gallop. The second heart sounds somewhat accentuated. There is a grade 2/6 mid systolic murmur. ABDOMEN: Obese with normal bowel sounds. EXTREMITIES: No significant edema. Palpable distal pulses. LAB DATA AND DIAGNOSTIC TESTS: The EKG shows normal sinus rhythm with complete right bundle branch block. There were isolated PAC's. TSH is 1.4. Sugar 283. Glomerular filtration rate greater than 60. Potassium 4.4. Hemoglobin 13.8 with PLT of 399,000. Hemoglobin A1C 9.47. Troponin I less than 0.012. CT chest shows no evidence of pulmonary embolism however the pulmonary artery is somewhat prominent and there are some suspicious changes for pneumonia. CT scan of the head did not show any acute intracranial abnormalities. ASSESSMENT AND PLAN: 1) Hypertension uncontrolled. Will add beta blockers to current medical regimen, continue with ZOHREH inhibitors and calcium channel blockers. Will review echocardiogram to assess the systolic function and also to assess for pulmonary hypertension. 2) Hypoxemia. This is probably related to restrictive lung disease on account of obesity and also underlying respiratory tract infection. I agree with work up for sleep apnea. 3) Recent diagnosis of diabetes. 4) Rule out hyperlipidemia. Lipid panel is ordered. Until she is stabilized from her respiratory status will do subsequent tests for coronary artery disease as she has multiple cardiac risk factors.
[2018-07-19] MEDS ORDERED: FLUZONE QUAD (36mo-64yo) 2018-2019 SYRINGE IM ONE (17:00)
[2018-07-19] MEDS: Glucophage XR 500 MG PO SCH (17:07)
[2018-07-19] MEDS: Coreg 3.125 MG PO SCH (22:00)
[2018-07-19] MEDS: ROCEPHIN 1 Gm-D5w 50 ml Bag** 1 G/50 ML IVPB IV SCH (22:11)
[2018-07-20 06:26] LABS: Risk Ratio 4.9
--- NOTE | 2018-07-20 07:44 | CONS ---
CONSULT DATE: 07/19/2018 REASON FOR CONSULT: Evaluation of shortness of breath, hypoxia. HISTORY: Babs Son is a 48 year-old obese woman who has been hospitalized with complaints of headaches. The patient reports that she has been noted to have uncontrolled hypertension. She states she has not been to a physician for several years. The patient is also noted to have a new onset diabetes mellitus. While all of this is being addressed she was noted to have leg swelling along with hypoxemia at rest. An arterial blood gas obtained showed mild hypercapnia with significant hypoxemia. A CT chest was performed which was negative for pulmonary embolism. However, it did show vascular congestion along with elevated pulmonary artery (PA) pressures. The patient does report reduced effort tolerance. She has never been diagnosed with pulmonary problems in the past. She is a nonsmoker. The patient has sleep fragmentation at night. She does report lack of morning freshness and excessive daytime sleepiness. She is also known to have fairly loud snoring. PAST MEDICAL HISTORY: As above. PAST SURGICAL HISTORY: No recent surgery. PERSONAL AND SOCIAL HISTORY: The patient lives in [place]. She denied smoking. FAMILY HISTORY: The patient's father of lung cancer and apparently was treated by me. MEDICATIONS: Home and current medications are reviewed. ALLERGIES: ASPIRIN, IBUPROFEN. PHYSICAL EXAMINATION: This is a middle aged woman who is sitting in a chair. The patient appears comfortable. Oxygen saturation 88% on room air at rest. Heart rate is 80, blood pressure trends are reviewed. HEENT: She is normocephalic. Oral exam shows small oropharynx. NECK: Supple. CVS: First and second heart sounds are normal, regular, rhythmic. RESPIRATORY: Shows diminished breath sounds. ABDOMEN: Obese. EXTREMITIES: Lower extremities show 1+ leg edema is noted. LABORATORY DATA AND TESTS: TSH is 1.4. Sodium 136, potassium 4.4, chloride 96, bicarb 34, glucose 283, BUN 25, creatinine 0.8. White blood cell count 12.6, hemoglobin 13.8, hematocrit 44, PLT 399,000. A1C 9.47. Troponin I is negative. BNP 759. The pH 7.44, pCO2 49, pO2 50 on room air on 07/17/2018. CT chest reviewed. ASSESSMENT: This is a 48 year old woman admitted with: 1) Chronic hypoxic and hypercapnic compensated respiratory failure. 2) Likely pulmonary hypertension. 3) Body habitus and history strongly suggestive of underlying sleep apnea. 4) Hypertension being managed by Dr. Saucedo. 5) New onset diabetes mellitus. 6) Obesity. RECOMMENDATIONS: 1) The patient will benefit from supplemental oxygen at home. 2) Pulmonary function test as outpatient. 3) Cautious diuresis monitoring weights and renal function. 4) Will benefit from polysomnography for noninvasive ventilation at night. 5) A 2D echocardiogram if this has not been already scheduled to assess pulmonary hypertension. 6) Continue other supportive care. I will be glad to assist the patient in outpatient setting upon discharge. Thank you for allowing me to participate in the care of this patient.
--- NOTE | 2018-07-20 07:54 | ECHO ---
Transthoracic echocardiographic examination and color Doppler was done on 07/19/2018. INDICATION: Hypoxia, shortness of breath, hypertension. IMPRESSION: 1) NO REGIONAL WALL MOTION ABNORMALITY. ESTIMATED GLOBAL LEFT VENTRICULAR EJECTION FRACTION 60%. 2) MODERATE TRICUSPID REGURGITATION. RIGHT VENTRICULAR SYSTOLIC PRESSURE OF 64 MM OF MERCURY SUGGESTIVE OF MODERATE TO SEVERE PULMONARY HYPERTENSION. 3) TRACE MITRAL REGURGITATION. 4) LEFT ATRIAL ENLARGEMENT. 5) MODERATELY DILATED RIGHT SIDED CHAMBERS. 6) LEFT VENTRICULAR HYPERTROPHY. 7) LEFT VENTRICULAR DIASTOLIC DYSFUNCTION. The left ventricle is visualized and demonstrated adequate motion of all the segments. Estimated global left ventricular ejection fraction 60%. There is concentric left ventricular hypertrophy. The mitral valve is seen and this opens adequately. There is mild mitral regurgitation. Left atrium is mildly enlarged. The aortic valve opens adequately. The right side chambers are mild to moderately dilated. There is moderate tricuspid regurgitation. The right ventricular systolic pressure of 64 mm of Mercury suggestive of moderate to severe pulmonary hypertension. Tissue Doppler study showed evidence of left ventricular diastolic dysfunction. There is also mild pulmonic insufficiency.
--- NOTE | 2018-07-20 08:35 | PCM.NOTE ---
Date and Time: 07/20/18 0830 Subjective Assessment: Patient reports she is still constipated. She reports getting short of breath when getting up around her room without her oxygen. She was seen by Dr. Gage and Dr. Saucedo yesterday. She reports her blood glucose was under 200 and her nurse states it was 183. Her nurse has been working on teaching her how to check her blood glucoses and will teach her how to give her insulin. - Review of Systems Constitutional: No Symptoms Eyes: No Symptoms Ears, Nose, & Throat: No Symptoms Respiratory: Short Of Breath Cardiac: No Symptoms Abdominal/Gastrointestinal: Constipation Genitourinary Symptoms: No Symptoms Musculoskeletal: No Symptoms Skin: No Symptoms Neurological: No Symptoms Objective Exam General Appearance: no apparent distress, obese, other (mother at the bedside) Neurologic Exam: alert, cooperative, normal mood/affect Skin Exam: normal color, warm, dry, other (large callous on medial aspect of left big toe), No rash Respiratory Exam: normal breath sounds, lungs clear, No prolonged expirations, No crackles/rales, No rhonchi, No wheezing Cardiovascular Exam: regular rate/rhythm, normal heart sounds, No murmur, No friction rub, No gallop Gastrointestinal/Abdomen Exam: soft, normal bowel sounds, No tenderness, No distention, No mass, No guarding Extremity Exam: other (no c/c/e) OBJECTIVE DATA Vital Signs: Vital Signs - 24 hr Temp Pulse Resp BP Pulse Ox 07/20/18 07:36 65 16 91 L 07/20/18 06:59 98.3 F 62 18 134/76 94 L 07/20/18 05:00 97.5 F 65 20 119/71 94 L 07/20/18 04:00 20 07/20/18 01:00 97.5 F 75 20 141/69 95 07/20/18 00:00 20 07/19/18 21:57 169/83 07/19/18 20:00 97.4 F 88 22 97 07/19/18 19:26 77 22 97 07/19/18 16:00 98.1 F 77 18 140/84 96 07/19/18 12:00 98.0 F 85 18 175/84 96 Oxygen-Last 24 hours O2 Percentage 2 Liters = 28% O2 Percentage 2 Liters = 28% O2 Percentage 2 Liters = 28% O2 Percentage 2 Liters = 28% O2 Percentage 2 Liters = 28% Pain Assessment - Last Documented Pain Intensity 0 Pain Scale Used 0-10 Pain Scale Intake and Output: Intake & Output 07/18/18 07/19/18 07/20/18 07/21/18 06:59 06:59 06:59 06:59 Intake Total 60 2668 2049 Output Total 300 500 Balance 60 2368 1549 Weight 133 kg 133 kg 133.6 kg Lab Results: Accuchecks Date 07/19/18 Date 07/19/18 Date 07/19/18 Time 21:30 Time 16:30 Time 11:30 Accucheck Value: 276 Accucheck Value: 301 Accucheck Value: 242 Lab Results-Last 24 Hours 07/19/18 07/20/18 Range/Units 09:18 05:34 Triglycerides 158 H (30-150) mg/dL Cholesterol 168 (50-200) mg/dL LDL Cholesterol 104 H (30-100) mg/dL HDL Cholesterol 34 L (40-60) mg/dL Heart Disease Risk Ratio 4.9 TSH 3rd Generation 1.440 (0.47-4.68) mIU/L Radiology Exams: Radiology Procedures Category Date Time Status ECHO W/2D AND DOPPLER [US] Routine Exams 07/19/18 11:00 Draft Multi-Disciplinary Progress Notes: Multi-Disciplinary Progress Notes 07/19/18 14:27 Nutrition Note by Connie Velazco Educated pt on 1800 ADA cardiac diet. MS LynneRDCD Initialized on 07/19/18 14:27 - END OF NOTE 07/19/18 11:05 Respiratory Note by Varsha Morataya 0900PT ROOM AIR RESTING SPO2 88%. PLACED BACK ON O2 AT 2LPM SPO2 95 Initialized on 07/19/18 11:05 - END OF NOTE 07/19/18 10:00 (created 07/19/18 11:00) Case Management Note by Pretty Nino DISCHARGE PLAN REVIEWED WITH PT, INDEPENDENT WITH ALL ADL'S. DENIES NEEDS FOR DISCHARGE. WILL CONTINUE TO FOLLOW FOR ALL DC NEEDS. REPORTS THAT SHE HAS RX COVERAGE FOR ANY NEW MEDICATIONS THAT SHE WILL NEED FOR DISCHARGE. Initialized on 07/19/18 11:00 - END OF NOTE Assessment/Plan (1) Hypertension Current Visit: Yes Status: Acute Qualifiers: Hypertension type: essential hypertension Qualified Code(s): I10 - Essential (primary) hypertension Assessment & Plan: Better controlled with addition of carvedilol today. Continue lisinopril and amlodipine as well. Code(s): I10 - ESSENTIAL (PRIMARY) HYPERTENSION (2) Hypoxia Current Visit: Yes Status: Acute Assessment & Plan: We plan for her to go home with home oxygen. Code(s): R09.02 - HYPOXEMIA (3) SOB (shortness of breath) Current Visit: Yes Status: Acute Assessment & Plan: Dr. Jemima Gage saw her yesterday. He has written for bumex IV this AM for diuresis. Code(s): R06.02 - SHORTNESS OF BREATH (4) New onset type 2 diabetes mellitus Current Visit: Yes Status: Acute Assessment & Plan: Fasting lipid profile was checked and LDL was >100. Simvastatin started because that is what is on formulary here. Will plan for atorvastatin 40 mg po qhs when she is discharged. Metformin started last night. Diabetic diet education done by appraisal technician and nurse is working with her too. Will start lantus 10 units daily today. Code(s): E11.9 - TYPE 2 DIABETES MELLITUS WITHOUT COMPLICATIONS (5) Fatty liver Current Visit: Yes Status: Chronic Code(s): K76.0 - FATTY (CHANGE OF) LIVER , NOT ELSEWHERE CLASSIFIED (6) Morbid obesity Current Visit: Yes Status: Chronic Code(s): E66.01 - MORBID (SEVERE) OBESITY DUE TO EXCESS CALORIES (7) Constipation Current Visit: Yes Status: Acute Assessment & Plan: Will add miralax and also milk of magnesia if needed. Code(s): K59.00 - CONSTIPATION, UNSPECIFIED (8) Cardiomegaly Current Visit: Yes Status: Acute Assessment & Plan: She was seen by Dr. Saucedo yesterday. There is concern for pulmonary hypertension. Code(s): I51.7 - CARDIOMEGALY (9) Atypical pneumonia Current Visit: Yes Status: Acute Onset Date: ~07/18/18 Assessment & Plan: Continue IV antibiotics. Day 4 for both ceftriaxone and azithromycin. Code(s): J18.9 - PNEUMONIA, UNSPECIFIED ORGANISM (10) Mixed hyperlipidemia Current Visit: Yes Status: Acute Code(s): E78.2 - MIXED HYPERLIPIDEMIA
[2018-07-20] MEDS ORDERED: MILK OF MAGNESIA 30 ML PO PRN (08:41)
[2018-07-20] MEDS: Lantus Insulin SQ SCH (09:23)
[2018-07-20] MEDS: DELTASONE 20 MG PO SCH (09:25)
[2018-07-20] MEDS: Zestril 20 MG*** 20 MG, hydroDIURIL 25 MG*** 25 MG PO SCH ×2 (09:25)
[2018-07-20] MEDS: NORVASC 5 MG PO SCH (09:26)
[2018-07-20] MEDS: Coreg 3.125 MG PO SCH ×2 (09:26→22:22)
[2018-07-20] MEDS: Senokot-S Tablet PO SCH ×2 (09:26→22:23)
[2018-07-20] MEDS: ENOXAPARIN SODIUM SQ SCH (09:26)
[2018-07-20] MEDS: Zithromax 500 MG/ 250 ML NaCl Premix 500 MG/250 ML IVPB IV SCH (09:33)
[2018-07-20] MEDS ORDERED: BUMEX 1 MG IV SCH (10:00)
[2018-07-20] MEDS: Miralax Powder 17GM PACKET PO SCH (10:35)
[2018-07-20] MEDS: Glucophage XR 500 MG PO SCH (17:16)
[2018-07-20] MEDS: NovoLOG Insulin SQ PRN ×2 (17:17→22:23)
[2018-07-20] MEDS ORDERED: ZOCOR 20MG PO SCH (22:00)
[2018-07-20] MEDS: ROCEPHIN 1 Gm-D5w 50 ml Bag** 1 G/50 ML IVPB IV SCH (22:21)
[2018-07-21 05:56] LABS: BASOPHIL % 0.2 % (0.0-0.4); Basophil (Absolute #) 0.03 (0-0.4); Eosinophil % 0.5 % (0.00-5.0); Eosinophil (Absolute #) 0.06 (0-0.5); Granulocyte Absolute (ANC) 8.99 (1.4-6.9); Granulocytes % 67.8 % (36.0-66.0); Hematocrit 44.6 % (35-47); Hemoglobin 14.1 gm/dl (12.0-16.0); Lymphocyte (Absolute #) 2.84 (1.0-4.6); Lymphocytes % 21.5 % (24.0-44.0); Mean Cell Volume 94.7 fl (78-100); Mean Corpuscular Hemoglobin 29.9 pg (26-32); Mean Corpuscular Hgb Concent. 31.6 g/dl (32-36); Mean Platelet Volume 9.3 fl (6-9.5); Monocyte (Absolute #) 1.32 (0.0-1.3); Platelet Count 410 K/mm3 (150-450); Red Blood Count 4.71 M/mm3 (4.1-5.4); Red Cell Distribution Width 12.7 % (11.5-14.0); White Blood Count 13.2 K/mm3 (4.0-10.5)
[2018-07-21 06:28] LABS: ANION GAP 11.1 MEQ/L (5-15); BLOOD UREA NITROGEN 35 mg/dL (7-17); CHLORIDE 94 mmol/L (98-107); Carbon Dioxide 35 mmol/L (22-30); Creatinine 1 0.75 mg/dL (0.52-1.04); Glucose 168 mg/dL (74-106); Potassium 4.1 mmol/L (3.5-5.1); SODIUM 135 mmol/L (137-145)
[2018-07-21] MEDS: Lantus Insulin SQ SCH (08:13)
[2018-07-21] MEDS: Zestril 20 MG*** 20 MG, hydroDIURIL 25 MG*** 25 MG PO SCH ×2 (09:13)
[2018-07-21] MEDS: Senokot-S Tablet PO SCH (09:13)
[2018-07-21] MEDS: Zithromax 500 MG/ 250 ML NaCl Premix 500 MG/250 ML IVPB IV SCH (09:14)
[2018-07-21] MEDS: ENOXAPARIN SODIUM SQ SCH (09:14)
[2018-07-21] MEDS: DELTASONE 20 MG PO SCH (09:14)
[2018-07-21] MEDS: NORVASC 5 MG PO SCH (09:14)
[2018-07-21] MEDS: Coreg 3.125 MG PO SCH (09:14)
[2018-07-21] MEDS ORDERED: BUMEX 1 MG PO SCH (10:00)
[2018-07-21] MEDS: Miralax Powder 17GM PACKET PO SCH (10:06)
--- NOTE | 2018-07-21 10:46 | PCM.NOTE ---
Date and Time: 07/21/18 1045 OBJECTIVE DATA Vital Signs: Vital Signs - 24 hr Temp Pulse Resp BP Pulse Ox 07/21/18 07:52 97.8 F 69 18 172/85 94 L 07/21/18 07:28 94 L 07/21/18 04:45 97.6 F 63 18 127/72 96 07/21/18 00:22 98.6 F 68 20 169/85 93 L 07/21/18 00:00 20 07/20/18 21:00 98.1 F 83 19 177/95 95 07/20/18 20:00 19 07/20/18 19:42 81 20 94 L 07/20/18 16:33 97.9 F 74 17 136/72 91 L 07/20/18 16:00 17 07/20/18 13:00 97.4 F 74 18 173/86 93 L 07/20/18 12:00 18 Oxygen-Last 24 hours O2 Percentage 2 Liters = 28% O2 Percentage 2 Liters = 28% O2 Percentage 2 Liters = 28% O2 Percentage 2 Liters = 28% O2 Percentage 2 Liters = 28% O2 Percentage 2 Liters = 28% Pain Assessment - Last Documented Pain Intensity 0 Pain Scale Used 0-10 Pain Scale Intake and Output: Intake & Output 07/19/18 07/20/18 07/21/18 07/22/18 06:59 06:59 06:59 06:59 Intake Total 2668 2049 2133 480 Output Total 955 204 6139 700 Balance 2368 1549 183 -220 Weight 133 kg 133.6 kg 132.5 kg Lab Results: Accuchecks Date 07/21/18 Date 07/20/18 Date 07/20/18 Date 07/20/18 Time 07:30 Time 22:00 Time 16:30 Time 11:30 Accucheck Value: 166 Accucheck Value: 291 Accucheck Value: 285 Accucheck Value: 190 Lab Results-Last 24 Hours 07/20/18 07/21/18 07/21/18 Range/Units 06:00 05:34 05:34 WBC 13.2 H (4.0-10.5) K/mm3 RBC 4.71 (4.1-5.4) M/mm3 Hgb 14.1 (12.0-16.0) gm/dl Hct 44.6 (35-47) % MCV 94.7 (78-100) fl MCH 29.9 (26-32) pg MCHC 31.6 L (32-36) g/dl RDW 12.7 (11.5-14.0) % Plt Count 410 (150-450) K/mm3 MPV 9.3 (6-9.5) fl Gran % 67.8 H (36.0-66.0) % Eos # (Auto) 0.06 (0-0.5) Absolute Lymphs (auto) 2.84 (1.0-4.6) Absolute Monos (auto) 1.32 H (0.0-1.3) Lymphocytes % 21.5 L (24.0-44.0) % Monocytes % 10.0 (0.0-12.0) % Eosinophils % 0.5 (0.00-5.0) % Basophils % 0.2 (0.0-0.4) % Absolute Granulocytes 8.99 H (1.4-6.9) Basophils # 0.03 (0-0.4) Sodium 135 L (137-145) mmol/L Potassium 4.1 (3.5-5.1) mmol/L Chloride 94 L (98-107) mmol/L Carbon Dioxide 35 H (22-30) mmol/L Anion Gap 11.1 (5-15) MEQ/L BUN 35 H (7-17) mg/dL Creatinine 0.75 (0.52-1.04) mg/dL Estimated GFR > 60.0 ML/MIN Glucose 168 H (74-106) mg/dL Calcium 9.0 (8.4-10.2) mg/dL Total Cortisol 0.7 L* (4.0-25.0) mcg/dL Ref Test Specimen Type Pending Radiology Exams: Radiology Procedures Category Date Time Status ECHO W/2D AND DOPPLER [US] Routine Exams 07/19/18 11:00 Draft Multi-Disciplinary Progress Notes: Multi-Disciplinary Progress Notes 07/20/18 14:30 (created 07/20/18 15:13) Respiratory Note by Rachel Davison The patient's O2 sat on room air at rest is 84%. Patient placed on 2lpm per NC. O2 sat increased to 91% immediately. Patient ambulated with O2 at 2lpm per NC and O2 sat increased to 95% on 2lpm per NC with ambulation. Initialized on 07/20/18 15:13 - END OF NOTE Assessment/Plan (1) Hypertension Current Visit: Yes Status: Acute Onset Date: ~07/18/18 Qualifiers: Hypertension type: essential hypertension Qualified Code(s): I10 - Essential (primary) hypertension Code(s): I10 - ESSENTIAL (PRIMARY) HYPERTENSION (2) Hypoxia Current Visit: Yes Status: Acute Code(s): R09.02 - HYPOXEMIA (3) SOB (shortness of breath) Current Visit: Yes Status: Acute Code(s): R06.02 - SHORTNESS OF BREATH (4) New onset type 2 diabetes mellitus Current Visit: Yes Status: Acute Code(s): E11.9 - TYPE 2 DIABETES MELLITUS WITHOUT COMPLICATIONS (5) Fatty liver Current Visit: Yes Status: Chronic Code(s): K76.0 - FATTY (CHANGE OF) LIVER , NOT ELSEWHERE CLASSIFIED (6) Morbid obesity Current Visit: Yes Status: Chronic Code(s): E66.01 - MORBID (SEVERE) OBESITY DUE TO EXCESS CALORIES (7) Constipation Current Visit: Yes Status: Acute Code(s): K59.00 - CONSTIPATION, UNSPECIFIED (8) Cardiomegaly Current Visit: Yes Status: Acute Code(s): I51.7 - CARDIOMEGALY (9) Atypical pneumonia Current Visit: Yes Status: Acute Onset Date: ~07/18/18 Code(s): J18.9 - PNEUMONIA, UNSPECIFIED ORGANISM (10) Mixed hyperlipidemia Current Visit: Yes Status: Acute Code(s): E78.2 - MIXED HYPERLIPIDEMIA
[2018-07-21] MEDS ORDERED: NORVASC 5 MG PO ONE (10:47)
[2018-07-21 11:04] LABS: Appearance CLEAR (CLEAR); Bilirubin NEGATIVE (NEGATIVE); Blood SMALL Ery/ul (0-5); Glucose NEGATIVE (NEGATIVE); Ketones NEGATIVE (NEGATIVE); Leukocyte Esterase NEGATIVE (NEGATIVE); Nitrite NEGATIVE (NEGATIVE); Protein,Urine Dip 100 (Negative); Specific Gravity 1.009 (1.005-1.025); Urobilinogen NEGATIVE mg/dL (0-1)
[2018-07-21] MEDS: NovoLOG Insulin SQ PRN ×2 (12:07→17:11)
--- NOTE | 2018-07-21 15:45 | PCM.DCORD ---
- Discharge Discharge Date: 07/21/18 Disposition: HOME HEALTH SERVICE Condition: Fair Prescriptions: New Amlodipine Besylate 10 mg PO DAILY #30 tablet Atorvastatin Calcium 40 mg PO QHS #30 tablet Bumetanide 1 mg [Bumex 1 mg] 1 mg PO DAILY #15 tablet Cefdinir 300 mg PO BID #6 capsule Carvedilol 3.125 mg [Coreg 3.125 MG] 3.125 mg PO Q12HT #60 tablet Prednisone 20 mg [Deltasone 20 mg] 20 mg PO DAILY #3 tablet Metformin HCl Xr 500 mg [Glucophage XR 500 MG] 1,000 mg PO EVENING MEAL #60 tab Hydrochlorothiazide 25 mg [hydroDIURIL 25 MG] 25 mg PO DAILY #30 tablet Insulin Glargine,Hum.rec.anlog [Lantus Solostar] 10 unit SQ DAILY #3 ml Albuterol Sulfate [Proair Hfa] 2 puffs IH Q4H PRN #1 hfa.aer.ad PRN Reason: Shortness Of Breath/Wheezing Lisinopril 20 mg [Zestril 20 MG] 20 mg PO DAILY #30 tablet Additional Instructions: Arrange for home O2 on d/c.Sleep study on d/c. Follow up with in 3-4 wks on d/c Follow up with: YUMIKO CHOUDHURY [ACTIVE STAFF] - 08/26/18 9:30 am ([facility] located in [facility]) NATIVIDAD ESPINOZA [ACTIVE STAFF] - 08/12/18 3:45 pm ([facility] located in [facility] ) FRANCISCA MCDOWELL [Primary Care Provider] - 07/30/18 10:00 am
[2018-07-21] MEDS: Glucophage XR 500 MG PO SCH (16:51)
[2018-07-21 17:08] VITALS: BP 165/86; PULSE 77; O2SAT 94
--- NOTE | 2018-07-22 08:44 | DS ---
DISCHARGE DIAGNOSES: 1) HYPERTENSION. 2) PULMONARY HYPERTENSION. 3) CHRONIC HYPOXIA DUE TO PULMONARY HYPERTENSION. 4) NEW ONSET TYPE 1 DIABETES MELLITUS. 5) FATTY LIVER. 6) MORBID OBESITY. 7) CARDIOMEGALY. 8) TYPICAL PNEUMONIA. 9) MIXED HYPERLIPIDEMIA. DISCHARGE PHYSICAL EXAMINATION: VITALS: Temperature current 97.8F, temperature max 98.6F, heart rate 63 to 83, respiratory rate 17 to 20, blood pressure 136 to 177 over 72 to 95, weight 132.5 kg. Oxygen saturation 93 to 96% on 2 liters nasal cannula. GENERAL: The patient is sitting up in her chair in no acute distress. She has family at the bedside. CVS: She has a regular rate and rhythm. No murmurs, gallops or rubs. CHEST: Clear to auscultation bilaterally. No crackles or wheezes are appreciated. ABDOMEN: Obese, soft, nontender, nondistended. EXTREMITIES: No clubbing, cyanosis or edema. SKIN: Warm, dry and intact. HOSPITAL COURSE: 1) HYPERTENSION: She was started on lisinopril and hydrochlorothiazide as well as amlodipine. Dr. Saucedo saw her and also started carvedilol. We plan to continue all of these at discharge. I increased her amlodipine at discharge from 5 to 10 mg and she will need to follow up with me in the clinic for control of her high blood pressure. There is concern that she may have an elevated cortisol level and when we checked it was actually decreased which may be due to her being on prednisone. I plan to re-evaluate that as an outpatient when she is off the steroids. 2) PULMONARY HYPERTENSION: Concern for this was found on her CT scan of her chest as she had to rule out a pulmonary embolism and then she had an echo done which Dr. Saucedo thought showed evidence of pulmonary hypertension. She will be following up with both Dr. Saucedo and Dr. Gage concerning this. Dr. Gage started her on Bumex which we will continue until we see her in follow up in the clinic and he also plans to see her in August. 3) CHRONIC HYPOXIA DUE TO PULMONARY HYPERTENSION: She has been started on 2 liters nasal cannula. Home oxygen has been set up and she will go home with oxygen. 4) NEW ONSET TYPE 1 DIABETES MELLITUS: She has been started on Metformin 1,000 mg daily as well as Lantus 10 units subcutaneously daily. I sent an Accu-Chek with supplies to her pharmacy from my outpatient clinic for her to check before meals and q.h.s. 5) FATTY LIVER: This was found on CT scan. 6) MORBID OBESITY. 7) CARDIOMEGALY: Again on echo and she will follow up with Dr. Saucedo concerning this. 8) ATYPICAL PNEUMONIA: She completed a five days of azithromycin while in the hospital, will finish out more days of third generation cephalosporin with Cefdinir 300 mg p.o. daily. She was on ceftriaxone during her hospitalization as well. 9) MIXED HYPERLIPIDEMIA: We started her on discharge on atorvastatin 40 mg p.o. q.h.s. She was on Simvastatin while she was an inpatient as atorvastatin was not available. DISCHARGE MEDICATIONS: Please see the discharge order. DISPOSITION: The patient was discharged home in fair condition with home health care. She is to follow up with me on 08/02/2018. She also has follow up scheduled with Dr. Saucedo and Dr. West Gage.
[2018-07-22] MEDS ORDERED: NORVASC 5 MG PO SCH (10:00)
== END 2018-07-21 18:15 | disposition home health service (06) | DRG 314 ==
LOC: ED 18:19 → MED SURG 07-18 01:50 → OBSVTOIN 07-18 14:53
PROVIDERS: ADMIT Internal Medicine; ATTEND Internal Medicine
DX: I27.20 Pulmonary hypertension, unspecified (principal); J18.9 Pneumonia, unspecified organism; I16.1 Hypertensive emergency; R09.02 Hypoxemia; E10.65 Type 1 diabetes mellitus with hyperglycemia; K76.0 Fatty (change of) liver, not elsewhere classified; E66.01 Morbid (severe) obesity due to excess calories; I51.7 Cardiomegaly; E78.2 Mixed hyperlipidemia; R55 Syncope and collapse; R51 Headache; R06.02 Shortness of breath; K59.00 Constipation, unspecified
CPT/HCPCS: 36415; 36600; 70450; 71260; 80048; 80061; 81001; 82375; 82533; 82803; 82962; 83036; 83721; 83880; 84443; 84484; 85025; 85610; 87040; 87086; 90686; 93005; 93306; 94010; 94150; 94640; 94762; 96374; 99285; G0008; J0456; J0696; J1650; J2930; A9270-GY

== ENCOUNTER 2020-09-02 12:53 | Emergency (ER) | payer OTHER ==
[2020-09-02 13:09] VITALS: BP 158/80; PULSE 88; O2SAT 96
[2020-09-02] MEDS ORDERED: Rocephin 1000 MG INJ IM ONE (13:12)
[2020-09-02] MEDS ORDERED: Rocephin 1000 MG INJ ONE (13:15)
--- NOTE | 2020-09-02 13:18 | ERPHSYRPT ---
- History of Present Illness Time Seen by Provider: 09/02/20 13:13 Source: patient Exam Limitations: no limitations Patient Subjective Stated Complaint: eye pain and swelling Triage Nursing Assessment: pt to ED c/o R eye pain and swelling. states she called her eye doc and was given eye drops for eye infection. has been taking those since Thursday, and has taken eye drops many times in past for same infection with no issues. reports she ususally has abx as well but was not given those this week. pain in eye lid 1/10 dull pain. non radiaitng Physician History: Right upper eyelid pain and swelling for 3 days c/o R eye pain and swelling. states she called her eye doc and was given eye drops for eye infection. has been taking those since Thursday, and has taken eye drops many times in past for same infection with no issues. reports she ususally has abx as well but was not given those this week. pain in eye lid 1/10 dull pain. non radiaitng Timing/Duration: day(s) (three) Location: right eye Associated Symptoms: pain, eyelid swelling Visual Assistive Devices: None Chemical Exposure: No Trauma: No Welding Arc/Tanning Bed Exposure: No Allergies/Adverse Reactions: aspirin Allergy (Severe, Verified 09/02/20 13:10) Swelling ibuprofen [From Motrin] Allergy (Severe, Verified 09/02/20 13:10) Swelling Hx Tetanus, Diphtheria Vaccination/Date Given: Yes Hx Influenza Vaccination/Date Given: Yes Hx Pneumococcal Vaccination/Date Given: No Immunizations Up to Date: Yes Travel Risk - International Travel Have you traveled outside of the country in past 3 weeks: No - Coronavirus Screening Are you exhibiting any of the following symptoms?: No Close contact with a COVID-19 positive Pt in past 14-21 Days: No - Review of Systems Constitutional: No Symptoms Eyes: Other (right upper eye lid swelling) Ears, Nose, & Throat: No Symptoms Respiratory: No Symptoms Cardiac: No Symptoms Abdominal/Gastrointestinal: No Symptoms Genitourinary Symptoms: No Symptoms Musculoskeletal: No Symptoms Skin: No Symptoms Neurological: No Symptoms - Past Medical History Pertinent Past Medical History: Yes Neurological History: No Pertinent History ENT History: No Pertinent History Cardiac History: Hypertension Respiratory History: No Pertinent History Endocrine Medical History: Diabetes Type II Musculoskeletal History: No Pertinent History GI Medical History: No Pertinent History History: No Pertinent History Psycho-Social History: No Pertinent History Female Reproductive Disorders: No Pertinent History Other Medical History: patient was 2 yrs old had "mylitis" per mother and was paralized from the waist down, learned to re-walk at [facility]. pulomonary hypertension - Past Surgical History Past Surgical History: No - Social History Smoking Status: Never smoker Exposure to second hand smoke: No Drug Use: none Patient Lives Alone: No - Female History Hx Now: No (menopause) - Nursing Vital Signs Nursing Vital Signs: Initial Vital Signs Temperature 97.9 F 09/02/20 13:01 Pulse Rate 88 09/02/20 13:01 Respiratory Rate 20 09/02/20 13:01 Blood Pressure 158/80 09/02/20 13:01 O2 Sat by Pulse Oximetry 96 09/02/20 13:01 Pain Scale Pain Intensity 1 - Physical Exam General Appearance: no apparent distress Vision Acuity Degree Evaluation Phase: Corrected Vision Acuity Right Eye: 20/20 Vision Acuity Left Eye: 20/20 Intraocular Pressure (Tonopen): right Eye Exam: right eye: eyelid inflammation, stye (right upper eye lid, external) Ears, Nose, Throat Exam: normal ENT inspection Neck Exam: normal inspection Respiratory Exam: normal breath sounds Cardiovascular Exam: regular rate/rhythm Gastrointestinal Exam: soft SpO2: 96 - Course Nursing assessment & vital signs reviewed: Yes - Progress Progress: unchanged Counseled pt/family regarding: diagnosis, need for follow-up - Departure Departure Disposition: Home Clinical Impression: Stye external Qualifiers: Laterality: right Eyelid: upper Qualified Code(s): H00.011 - Hordeolum externum right upper eyelid Condition: Stable Critical Care Time: No Referrals: OVIDIO HAND [Primary Care Provider] - Instructions: Anjana (DC) Additional Instructions: KRISTAL EASTON was seen on 09/02/20 n the Emergency Room. At that time you were treated for an emergent condition, during your visit Laboratory, Radiology and/or other procedures may have been ordered. It is very important that you follow-up with your Primary Care Physician OVIDIO HAND within the next 24-48 hours to review your Emergency Room visit and the final results of testing that was ordered. Some test results such as Urine Cultures, Blood Cultures, and other cultures if ordered will not be finalized for 24-48 hours. If you do not have a Primary Care Provider please call the medical records department at [phone] ext [phone] to obtain a copy of your results or you may sign into our patient portal to obtain these results by visiting us @ [email or web address] and completing the following steps: 1. Click on the Patient Portal link 2. Click the Patient Self Enrollment Link to complete the enrollment form and entering your 3. Once the enrollment form is completed you will receive an email with a temporary ID and password at the email address you provided. 4. Next choose a user name and password. Your user name must be at least 4 characters long and your password must be at least 4 characters long. 5. Choose a security question from the list and provide your answer to the question. If you already have signed into the Health Portal you may access your Health Care Information 23/02 by the following steps: 1. Login to our website @ [email or web address] 2. Enter your original user name and password. FAQS The [facility] Health Portal is an online tool that contains your Lab Results, Radiology Reports, Visit History, Discharge Instructions and Health Summary Lab and Radiology Results will not be available for 72 hours on the portal. The Portal is a secure site, passwords are encryted and URLs are re-written so they cannot be copied and pasted. You and authorized family members are the only ones who can access your Portal. Also there is a timeout feature that protects your information if you leave the Portal page open. If you have technical difficulty please use the Contact Us link on the page this will allow you to submit any questions you have regarding the Portal or you may contact the Medical Record Department at [phone]. Prescriptions: Amoxicillin 500 mg Cap [Amoxil 500 mg] 500 mg PO TID #30 capsule
== END 2020-09-02 13:43 | disposition home or self-care (01) ==
LOC: ED 12:53
DX: H57.11 Ocular pain, right eye (principal); H01.9 Unspecified inflammation of eyelid; H00.011 Hordeolum externum right upper eyelid
CPT/HCPCS: 96372; 99283; J0696

== ENCOUNTER 2023-07-21 09:37 | Day surgery (SDC) | payer OTHER ==
[~2023-07-21 09:37] MED LIST: TOBRAMYCIN-DEXAMETH OPHTH SUSP OP SCH
[2023-07-21] MEDS ORDERED: Epinephrine Preservative Free 1 MG/ML IJ ONE (09:38)
[2023-07-21] MEDS ORDERED: Ak-Dilate OPHTHALMIC*** 1.065 ML, Cyclogyl 1% OPHTH SOL 1.065 ML, GATIFLOXACIN 0.5% OPH... OP ONE ×3 (10:00)
[2023-07-21] MEDS ORDERED: cefUROXime sodium 0.005 GM in Sodium Chloride Flush 30 ML*** 0.5 ML IJ ONE (10:00)
[2023-07-21] MEDS ORDERED: NON-FORMULARY ITEM OP ONE (10:00)
[2023-07-21] MEDS ORDERED: Lactated Ringers 1,000 ML IV SCH (10:00)
[2023-07-21] MEDS ORDERED: BETADINE 5% OPHTHALMIC 30 ML OP ONE (10:00)
[2023-07-21] MEDS ORDERED: TETRACAINE 0.5% STERI-UNIT SOL OP ONE ×2 (10:00)
[2023-07-21] MEDS ORDERED: Lactated Ringers 1,000 ML IV ONE (10:23)
[2023-07-21 11:13] VITALS: TEMP 98.2
[2023-07-21] MEDS ORDERED: Zofran 4 MG/2 ML VIAL IV PRN (11:30)
[2023-07-21] MEDS ORDERED: ACETAZOLAMIDE 250 MG TABLET PO ONE (11:30)
[2023-07-21] MEDS ORDERED: Versed 2 MG/2 ML Injection ONE (12:06)
[2023-07-21] MEDS ORDERED: DIPRIVAN 200 MG/20 ML IV ONE ×2 (12:06→12:21)
[2023-07-21] MEDS ORDERED: SUBLIMAZE 100 MCG/2 ML ONE (12:07)
[2023-07-21 12:33] VITALS: RESP 18
[2023-07-21 12:46] VITALS: BP 120/77; PULSE 87; O2SAT 93
== END 2023-07-21 12:50 | disposition home or self-care (01) ==
LOC: SDC 09:37
PROVIDERS: ATTEND Ophthalmology
DX: H25.811 Combined forms of age-related cataract, right eye (principal); E11.9 Type 2 diabetes mellitus without complications
CPT/HCPCS: 82947; C1780; J0171; J2250; J2704; J3010; A9270-GY

== ENCOUNTER 2023-08-18 06:46 | Day surgery (SDC) | payer OTHER ==
[2023-08-18] MEDS ORDERED: Ak-Dilate OPHTHALMIC*** 1.065 ML, Cyclogyl 1% OPHTH SOL 1.065 ML, GATIFLOXACIN 0.5% OPH... OP ONE ×3 (07:00)
[2023-08-18] MEDS ORDERED: cefUROXime sodium 0.005 GM in Sodium Chloride Flush 30 ML*** 0.5 ML IJ ONE (07:00)
[2023-08-18] MEDS ORDERED: BETADINE 5% OPHTHALMIC 30 ML OP ONE (07:00)
[2023-08-18] MEDS ORDERED: TETRACAINE 0.5% STERI-UNIT SOL OP ONE ×2 (07:00)
[2023-08-18] MEDS ORDERED: Lactated Ringers 1,000 ML IV SCH (07:00)
[2023-08-18] MEDS ORDERED: Lactated Ringers 1,000 ML IV ONE (07:23)
[2023-08-18] MEDS ORDERED: Zofran 4 MG/2 ML VIAL IV PRN (09:00)
[2023-08-18] MEDS ORDERED: Epinephrine Preservative Free 1 MG/ML IJ ONE (09:00)
[2023-08-18] MEDS ORDERED: ACETAZOLAMIDE 250 MG TABLET PO ONE (09:00)
[2023-08-18] MEDS ORDERED: TOBRAMYCIN-DEXAMETH OPHTH SUSP OP SCH (09:00)
[2023-08-18] MEDS ORDERED: DIPRIVAN 200 MG/20 ML IV ONE ×2 (10:16→10:35)
[2023-08-18] MEDS ORDERED: Versed 2 MG/2 ML Injection ONE (10:16)
[2023-08-18] MEDS ORDERED: DEXMEDETOMIDINE 80 MCG/20ML-NS IV ONE (10:30)
[2023-08-18 10:47] VITALS: RESP 12; TEMP 96.4
[2023-08-18 11:00] VITALS: O2SAT 92
[2023-08-18 11:04] VITALS: BP 128/64; PULSE 69
== END 2023-08-18 11:11 | disposition home or self-care (01) ==
LOC: SDC 06:46
PROVIDERS: ATTEND Ophthalmology
DX: H25.812 Combined forms of age-related cataract, left eye (principal); E11.9 Type 2 diabetes mellitus without complications; I10 Essential (primary) hypertension
CPT/HCPCS: 82947; 93005; C1780; J0171; J2250; J2704; A9270-GY